=== PATIENT | male | born 1950 | race Caucasian/White ===

== ENCOUNTER 2016-12-31 12:35 | Day surgery (SDC) | payer BC ==
[2016-12-28 13:17] VITALS: BMI 27.8
[2016-12-31] MEDS ORDERED: Iothalamate Meglumine 60% 50 ML VIAL FS ONE (13:51)
[2016-12-31] MEDS ORDERED: Fentanyl 100 MCG/2 ML VIAL ONE (13:55)
[2016-12-31] MEDS ORDERED: Promethazine HCl 25 MG/ML VIAL ONE (13:56)
[2016-12-31] MEDS ORDERED: Indomethacin 50 MG SUPP ONE (14:18)
[2016-12-31] MEDS ORDERED: Propofol 200 MG/20 ML VIAL ONE (14:26)
[2016-12-31] MEDS ORDERED: Ondansetron HCl/PF 4 MG/2 ML Vial ONE (14:26)
[2016-12-31] MEDS ORDERED: Glycopyrrolate 0.2 MG/ML 5 ML SYRINGE ONE (14:26)
[2016-12-31] MEDS ORDERED: cefTRIAXone\\ROCEPHIN 1 GM, Syringe 0.4 ML in Sterile Water 9.6 ML SLOW IVP SCH (14:30)
--- OUTSIDE RECORDS SUMMARY | 2016-12-31 14:46 | XMS | Clinical Summary ---
:1950 Author Organization [facility] Address [address] [place] [address] Phone Care Team Providers Name Role Phone , Primary Care Provider Unavailable Allergies Active Allergy Reactions Severity Noted Date Comments Penicillins Rash Low 12/29/2015 Current Medications Prescription Sig. Disp. Refills Start Date End Date Status QUINAPRIL HCL (QUINAPRIL Take by mouth. Active ORAL) Active Problems Not on file Social History Tobacco Use Types Packs/Day Years Used Date Never Smoker Alcohol Use Drinks/Week oz/Week Comments No Sex Assigned at Date Recorded Not on file Last Filed Vital Signs Vital Sign Reading Time Taken Blood Pressure 112/74 12/30/2015 12:20 PM GENERATOR SWITCHBOARD OPERATOR Pulse 74 12/30/2015 12:20 PM GENERATOR SWITCHBOARD OPERATOR Temperature 36.8 C (98.2 F) 12/30/2015 11:55 AM GENERATOR SWITCHBOARD OPERATOR Respiratory Rate 18 12/30/2015 12:15 PM GENERATOR SWITCHBOARD OPERATOR Oxygen Saturation 98% 12/30/2015 12:20 PM GENERATOR SWITCHBOARD OPERATOR Inhaled Oxygen Concentration - - Weight 99.3 kg (219 lb) 12/30/2015 9:12 AM GENERATOR SWITCHBOARD OPERATOR Height 180.3 cm (5' 11") 12/30/2015 9:12 AM GENERATOR SWITCHBOARD OPERATOR Body Mass Index 30.54 12/30/2015 9:12 AM GENERATOR SWITCHBOARD OPERATOR Plan of Treatment Not on file Results Not on filefrom Last 3 Months
--- NOTE | 2016-12-31 19:18 | RAD ---
ERCP: Date: 12/31/16 HISTORY: Stent placement. FINDINGS/IMPRESSION: Spot fluoroscopic images of the right upper quadrant during an ERCP demonstrate opacification of the hepatic biliary ducts and their branches without significant filling defects. There is incomplete o pacification of the common bile duct. The final image demonstrates a stent in the common bile duct. POS: [facility]
--- NOTE | 2016-12-31 21:52 | OP ---
DATE OF OPERATION: 12/31/2016 PROCEDURE: ERCP with cytology brushing and biliary stent placement. PHYSICIAN: Kai Colin M.D. ANESTHESIA: Given by anesthesiology department. PREOPERATIVE DIAGNOSES: 1. History of jaundice associated with fevers, chills, and abnormal liver profile. 2. Status post laparoscopic cholecystectomy with subsequent ERCP for choledocholithiasis in 2016. POSTOPERATIVE DIAGNOSIS: 4 cm length stricture in the upper common bile duct with intrahepatic bili daniel dilatation. PROCEDURE IN DETAIL: Written consent was obtained prior to procedure. The side-viewing endoscope w as advanced down the stomach through pylorus into duodenum. The previous sphincterotomy was noted a t the ampulla and appeared normal. A multistage stage balloon was then used to cannulate the common bile duct without any difficulty. Injection of contrast initially showed a 5 mm caliber distal com mon bile duct with an abrupt and below the 2 surgical clips. A guidewire was then placed across and traversed upward. The balloon was able to traverse the stricture. Opacification with contrast hema wed the intrahepatic biliary system to be dilated. There appears to be a 4+ cm length stricture in the upper common bile duct that appears to abut the bifurcation. The balloon was then removed. A p athology brush was then placed over the guidewire for brushing. A total of 4 slides were fixated an d sent to pathology. Next, a apparatus catheter was then placed over the guidewire. A 10-Serbian 10 cm length biliary stent was then placed across the stricture with good bile drainage. There was pr ompt excretion of contrast from the intrahepatic biliary system. Fluoroscopic views were obtained. The endoscope was then removed. The patient tolerated procedure well. ASSESSMENT: 1. A 4 cm biliary stricture in the upper common bile duct appears to abut the bifurcation. 2. Status post biliary stent placement and cytology brushing. PLAN: 1. Await cytology report. 2. We will obtain CT and CA 19-9 level.
== END 2016-12-31 17:41 | disposition home or self-care (01) ==
LOC: SDC 12:35
PROVIDERS: ATTEND Internal Medicine Gastroenterology
PROC: 0F798DZ Dilation of Common Bile Duct with Intraluminal Device, Via Natural or Artificial Opening Endoscopic (ICD-10-PCS; principal; 2016-12-31)
DX: K83.1 Obstruction of bile duct (principal); I10 Essential (primary) hypertension; Z88.0 Allergy status to penicillin; Z79.899 Other long term (current) drug therapy; Z90.49 Acquired absence of other specified parts of digestive tract; Z98.890 Other specified postprocedural states
CPT/HCPCS: 36415; 74330; 82105; 82378; 86301; 88104; A4216; C2625; J0696; J2405; J2550; J2704; J3010; Q9961

== ENCOUNTER 2017-01-03 08:42 | Outpatient (CLI) | payer BC ==
--- NOTE | 2017-01-03 12:27 | CT ---
EXAM: ABDOMEN CT WITH CONTRAST PELVIC CT WITH CONTRAST: COMPARISON: 01/02/16. HISTORY: Dilatation of the common duct. The patient has a common duct stent. COMPARISON: 01/02/16. TECHNIQUE: An abdomen and pelvis CT are performed with IV and oral contrast. Coronal reformatted images are sub mitted for interpretation. FINDINGS: ABDOMEN CT: Chronic change of the lung bases. Heart is normal in size. No significant pericardial fluid. The d escending thoracic aorta and abdominal aorta have a normal caliber. No periaortic fat stranding. The spleen and adrenal glands have appropriate enhancement. There is symmetric enhancement of the ki dneys. Redemonstration of a right renal cyst, measuring 3.2 cm suggesting slight interval increase i n size. There is no evidence of obstructive uropathy. There is air in the biliary system. There is a stent in the common bile duct. The body and the tail of the pancreas have a normal appearance. Adjacent to the head of the pancreas, there is a hypodens e mass which has a heterogeneous enhancement and measures 7.8 x 4.9 x 5.2 cm. A cholangiocarcinoma i s favored, based upon location. There is evidence of tumor thrombus involving the right protal vein, main portal vein, and superior mesenteric vein. Questionable extension of thrombus into the inferio r vena cava. Gastric mucosa, duodenum, and multiple normal-caliber small bowel loops are noted. Ileocecal junctio n is normal. Fecal material in a nondistended, nondilated colon. Diverticulosis, without evidence o f diverticulitis. In the anterior left abdominal rectus muscle, there is an enhancing mass measuring 1.7 x 2.2 cm. Que stionable small necrotic component. A metastatic focus is favored. This finding was not present on the previous exam. PELVIC CT: No mass, lymphadenopathy, free air, or free fluid. No lytic or blastic lesions. Pars defects with spondylolisthesis at the lumbosacral junction are not ed. IMPRESSION: 1. Cholangiocarcinoma as detailed above. 2. Presumed metastatic periportal and gastrohepatic ligament lymph nodes, nonenlarged. Confirmation with PET imaging. 3. 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 Questionable extension of thrombus into the inferior vena cava. 4. Left anterior abdominal rectal mass, possibly representing a metastatic focus. POS: [facility]
[2017-01-03] MEDS ORDERED: Iopamidol 370 76% 100 ML VIAL ONE (15:23)
== END 2017-01-03 08:43 | disposition home or self-care (01) ==
LOC: CT 08:42
PROVIDERS: ATTEND Internal Medicine Gastroenterology
DX: K83.1 Obstruction of bile duct (principal); R17 Unspecified jaundice; C22.1 Intrahepatic bile duct carcinoma; I81 Portal vein thrombosis; K62.89 Other specified diseases of anus and rectum
CPT/HCPCS: 74177

== ENCOUNTER 2017-04-22 08:04 | Outpatient (CLI) | payer MEDICARE ==
--- NOTE | 2017-04-22 11:41 | CT ---
ABDOMEN CT WITH CONTRAST PELVIC CT WITH CONTRAST: COMPARISON: 01/03/17, 02/21/17. TECHNIQUE: Abdomen and pelvic CT performed with IV and oral contrast. Coronal reformatted images are submitted for interpretation. HISTORY: Cholangiocarcinoma. Currently undergoing chemotherapy. FINDINGS: ABDOMEN CT: Lung bases are clear. Heart size is normal. No pericardial effusion. The descending thoracic aorta and abdominal aorta are unchanged. Symmetric attenuation of the psoas muscles. Redemonstration of stents in the intra- and extrahepatic biliary system, unchanged in position. Ther e is continued and essentially stable dilatation of the intra- and extrahepatic biliary system. Stab le hypodensities throughout the hepatic parenchyma. Conglomeration of hypodensities in the right hep atic lobe measuring 2.1 x 2.4 cm. Hypodensity in the anterior segment of the right hepatic lobe, ephraim suring 2.8 x 1.5 cm. The conglomeration of hypodensities previously measured 1.5 x 2.2 cm. The hypo density in the anterior segment of the right hepatic lobe previously measured 2.0 x 1.3 cm. Redemons tration of a mass inferior to the caudate lobe of the liver. This mass measures 9.8 x 5.4 cm (previo usly measuring 8.8 x 4.9 cm. Mass extends into the portal venous system. There is perihepatic and perisplenic fluid. The spleen, adrenal glands, and pancreas are unchanged in appearance. Symmetric enhancement of the k idneys. Stable hypodensities in the right renal cortex. Bilaterally, no obstructive uropathy. No mesenteric mass, lymphadenopathy, or free air. Gastric mucosa is underdistended. Duodenum is unremarkable. The distal aspect of the intrabiliary s tents are noted in the third portion of the duodenum. Multiple normal-caliber small bowel loops. No rmal ileocecal junction. Retained contrast outlines the mucosa of the right hemicolon. No evidence of chronic obstruction. Note is made of splenic varices. Extensive diverticulosis in the left hemicolon, without evidence of diverticulitis. Redemonstration of a hyperdense mass along the anterior left rectus muscle/subcutaneous fat, measurin g 2.4 cm (previously measuring 1.7 x 2.4 cm (previously measuring 2.2 x [address]: There is complex fluid in the pelvis with attenuation coefficient of 11 Hounsfield units. The urinar y bladder is unremarkable. There is a right-sided inguinal hernia containing ascites. No pelvic mass , lymphadenopathy, or free air. No lytic or blastic lesions in the osseous structures. IMPRESSION: 1. Redemonstration of cholangiocarcinoma with multiple intrahepatic metastases. Stable dilatation o f the intra- and extrahepatic biliary system. 2. Stable positioning of a biliary stent. 3. 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 POS: [facility]
[2017-04-22] MEDS ORDERED: Iopamidol 370 76% 100 ML VIAL ONE (16:01)
== END 2017-04-22 08:05 | disposition home or self-care (01) ==
LOC: CT 08:04
PROVIDERS: ATTEND Internal Medicine Hematology & Oncology
DX: C23 Malignant neoplasm of gallbladder (principal); C24.8 Malignant neoplasm of overlapping sites of biliary tract; C78.89 Secondary malignant neoplasm of other digestive organs; I81 Portal vein thrombosis
CPT/HCPCS: 74177

== ENCOUNTER 2017-05-23 08:28 | Day surgery (SDC) | payer MEDICARE ==
[2017-05-23] MEDS ORDERED: Sodium Chloride 0.9% 30 ML ONE (08:52)
[2017-05-23] MEDS ORDERED: diphenhydrAMINE 25 MG CAP PO SCH (09:15)
[2017-05-23] MEDS ORDERED: Acetaminophen 500 MG TAB PO SCH (09:15)
[2017-05-23 15:23] VITALS: BP 104/57; TEMP 97.9
[2017-05-23 16:16] LABS: #Lymphocytes 0.6 thou/uL (1.20-3.40); #Neutrophils 3.1 thou/uL (1.40-6.50); %Eosinophils 0.2 % (0.0-10.0); %Lymphocytes 15.2 % (21.0-51.0); %Monocytes 0.3 % (0.0-10.0); %Neutrophils 84.3 % (42.0-75.0); Hemoglobin 9.3 g/dL (14.0-18.0); Mean Corpuscular HGB CONC 33.7 g/dL (32.0-36.0); Mean Corpuscular Hemoglobin 34.3 pg (27.0-31.0); Mean Platelet Volume 9.1 fL (7.4-10.4); Platelet Count 87 thou/uL (130-400); RBC Distribution Width 15.3 % (11.5-14.5); White Blood Cell (WBC) Count 3.6 thou/uL (4.8-10.8)
[2017-05-23 16:17] LABS: Anisocytosis SLIGHT = 6-15 cells (100X) (0-5/hpf); MDiff Complete? YES; Macrocytosis SLIGHT = 6-15 cells (100X) (0-5/hpf); PLT Morphology Comment Appears Decreased; Polychromasia SLIGHT = 2-3 cells (100X) (0-2/hpf)
== END 2017-05-23 15:24 | disposition home or self-care (01) ==
LOC: ONC/OP 08:28
PROVIDERS: ATTEND Internal Medicine Hematology & Oncology
PROC: 30233N1 Transfusion of Nonautologous Red Blood Cells into Peripheral Vein, Percutaneous Approach (ICD-10-PCS; principal; 2017-05-23)
DX: D64.9 Anemia, unspecified (principal); D69.6 Thrombocytopenia, unspecified; Z79.899 Other long term (current) drug therapy; Z88.0 Allergy status to penicillin
CPT/HCPCS: 36430; 85025; 86850; 86900; 86901; A4216; J1642; P9016

== ENCOUNTER 2017-05-28 10:21 | Inpatient (IN) | payer MEDICARE ==
[2017-05-28] MEDS ORDERED: KETAMINE 100 MG/ML (5ML VIAL) ONE (10:36)
[2017-05-28 10:51] LABS: Hemoglobin 9.3 g/dL (14.0-18.0); Mean Corpuscular HGB CONC 32.6 g/dL (32.0-36.0); Mean Corpuscular Hemoglobin 33.2 pg (27.0-31.0); Platelet Count 9 thou/uL (130-400); RBC Distribution Width 16.1 % (11.5-14.5); White Blood Cell (WBC) Count 0.4 thou/uL (4.8-10.8)
[2017-05-28] MEDS ORDERED: Cefepime 2 GM/10 ML SYR ONE (11:01)
[2017-05-28 11:04] LABS: ALT (SGPT) 20 U/L (8-55); AST (SGOT) 32 U/L (5-34); Albumin 2.1 g/dL (3.4-4.8); Alkaline Phosphatase 133 U/L (40-150); Anion Gap 27 mmol/L (10-20); BUN (Urea Nitrogen) 70 mg/dL (8.4-25.7); Bilirubin, Total 1.6 mg/dL (0.2-1.2); CK (CPK) 61 U/L (30-200); Calc. Creatinine Clearance 0 mL/min (70-130); Calcium 7.8 mg/dL (7.8-10.44); Carbon Dioxide 11 mmol/L (23-31); Chloride 107 mmol/L (98-107); Estimated GFR-MDRD 25; Globulin 3.2 g/dL (2.4-3.5); Glucose 68 mg/dL (80-115); Protein, Total 5.3 g/dL (5.8-8.1); Sodium 141 mmol/L (136-145)
[2017-05-28 11:09] LABS: CKMB 0.4 ng/mL (0-6.6)
[2017-05-28] MEDS ORDERED: Ondansetron PF 4 MG/2 ML Vial ONE (11:09)
[2017-05-28 11:16] LABS: MDiff Complete? YES; Ovalocytes SLIGHT = 2-5 cells (100X) (0-1/hpf); PLT Morphology Comment Appears Decreased; Polychromasia SLIGHT = 2-3 cells (100X) (0-2/hpf); Schistocytes SLIGHT = 2-5 cells (100X) (0-1/hpf)
--- NOTE | 2017-05-28 11:50 | RAD ---
PORTABLE CHEST 1 VIEW: DATE: 05/28/17. TIME: 11:22 a.m. HISTORY: Hypotension. FINDINGS: There is a right-sided Port-A-Cath with tip in the projection of the cavoatrial junction. The heart size is borderline. The aorta is tortuous. There is mild pulmonary vascular congestion. No lobar c onsolidation, pneumothoraces, or large effusions are seen. POS: [facility]
[2017-05-28] MEDS ORDERED: Hydrocortisone Sod Succ/PF 100 mg/2 ml Vial ONE (12:17)
[2017-05-28 13:04] LABS: Bilirubin Negative (Negative); Blood, Urine Moderate (Negative); Clarity CLOUDY (Clear); Glucose, Urine (Dipstick) Negative (Negative); Leukocyte Negative (Negative); Nitrite Negative (Negative); Protein, Urine (Dipstick) 30 mg/dL (Neg-Trace); Specific Gravity, Urine 1.015 (1.002-1.036); Urobilinogen 0.2 mg/dL (0.2-1.0)
[2017-05-28 13:06] LABS: Bacteria/HPF None Seen HPF (None Seen)
[2017-05-28] MEDS ORDERED: CCU Electrolyte Replacement 1 EACH IVPB ONE (13:06)
[2017-05-28] MEDS ORDERED: VANCOMYCIN IVPB PRN (13:06)
[2017-05-28 13:11] LABS: Yeast-AUWi Flag 130.1 (0-25.0)
[2017-05-28 13:12] LABS: Pathc Cast-AUWi Flag 11.48 (0-2.49)
[2017-05-28 13:20] LABS: Hyaline Casts/LPF 0-3 HYALINE CAST LPF (0-3 Hyaline); Other Casts/LPF None Seen LPF (0-3 Hyaline); Yeast-All Forms None Seen HPF (None Seen)
[2017-05-28 13:21] LABS: Renal Epithelial 0-3 HPF (0-3); Transitional Epithelial 0-3 HPF (0-3)
[2017-05-28] MEDS ORDERED: Potassium Phosphate 9 MMOL in Sodium Chloride 0.9% 100 ML IVPB PRN (13:32)
[2017-05-28] MEDS ORDERED: Magnesium Oxide 400 MG TAB PO PRN ×2 (13:32)
[2017-05-28] MEDS ORDERED: Potassium Chloride 20 MEQ TAB PO PRN (13:32)
[2017-05-28] MEDS ORDERED: Potassium Chloride 40 MEQ in Premix Bag 1 BAG IVPB PRN (13:32)
[2017-05-28] MEDS ORDERED: Potassium Chloride 40 MEQ in Sodium Chloride 0.9% 250 ML 250 ML IVPB PRN (13:32)
[2017-05-28] MEDS ORDERED: Magnesium 2 GM/NS 0.9% 100 ML 2 GM in Premix Bag 1 BAG IVPB PRN (13:32)
[2017-05-28] MEDS ORDERED: Potassium Phosphate 12 MMOL in Sodium Chloride 0.9% 250 ML 250 ML IV PRN (13:32)
[2017-05-28] MEDS ORDERED: Potassium Phosphate 15 MMOL in Sodium Chloride 0.9% 250 ML 250 ML IV PRN (13:32)
--- NOTE | 2017-05-28 13:34 | CON ---
DATE OF CONSULTATION: 05/28/2017 This is 45 minutes critical care time. CONSULTING PHYSICIAN: Dr. Johnathan Garcia REASON FOR CONSULTATION: Septic shock. HISTORY OF PRESENT ILLNESS: Mr. Cook is a pleasant 66-year-old male who came into the hospital to day with one day of feeling poorly. He has had a dry cough. He has had severely low blood pressure. He took chemotherapy last week for his cholangiocarcinoma. He tells me he has a history of biliary stent placement several months ago down at [facility]. PAST MEDICAL HISTORY: 1. Cholangiocarcinoma. 2. Hypertension. PAST SURGICAL HISTORY: Appendectomy and biliary stent placement. ALLERGIES: PENICILLIN. MEDICATIONS PRIOR TO ADMISSION: Hydrochlorothiazide and perindopril. He may have also recently rece ived steroids per his chemotherapy. SOCIAL HISTORY: He does not smoke, does not consume alcohol, does not use illicit drugs. REVIEW OF SYSTEMS: Twelve point review of systems otherwise negative. PHYSICAL EXAMINATION: VITAL SIGNS: Blood pressure 80/60, pulse 120, O2 sat 98%, temperature 97. GENERAL: The patient looks acutely ill. He is able to converse without much limitation. HEENT: Remarkable for alopecia. NECK: No adenopathy, no JVD. LUNGS: Clear to auscultation. CARDIAC: S1, S2, tachycardic, irregularly irregular. ABDOMEN: Soft, nontender to palpation. EXTREMITIES: No clubbing or cyanosis, he has 2+ edema from his knees downward. LABORATORY AND X-RAY FINDINGS: White blood count 0.4, hemoglobin 9.3, hematocrit 28.6, platelet 9. Neutrophil count was not reportable. Sodium 141, potassium 4, chloride 107, CO2 11, BUN 70, creatini ne 2.5, glucose 68. Lactate was 13.3, AST 32, ALT 20. BNP 1672. Troponin 0.09, albumin 2.1. His chest x-ray shows no acute infiltrates, but does show some chronic interstitial changes. ASSESSMENT: 1. Septic shock. 2. Neutropenic sepsis. 3. Cholangiocarcinoma. 4. Status post biliary stent placement. DISCUSSION: 1. Usually in this case I would be suspicious of his infection being of gastrointestinal source. Pn eumonia cannot be completely ruled out. I would treat him with broad spectrum IV antibiotics. It so unds like he has received a dose of cefepime and vancomycin while in the ER. I would probably put hi m on a quinolone and the vancomycin. 2. Empiric steroids. 3. Agree with platelet transfusion. 4. The patient has central IV access through a MediPort. 5. Cardiology consult for the irregular heart rate - EKG is suspicious for atrial fibrillation and candace berrios has been shocked twice by the emergency room doctor without resolution. I think this is more likel y some type of sinus tachycardia with irregularity. 6. IV fluids with bicarbonate to help with metabolic acidosis. 7. Danielson catheter insertion. The above encompassed 45 minutes critical care time.
[2017-05-28 13:46] VITALS: BMI 26.9
[2017-05-28 14:11] LABS: Troponin I 0.076 ng/mL (< 0.028)
[2017-05-28] MEDS: Sodium Bicarbonate 70 MEQ in Dextrose 5 %-0.45 % NaCl 1,000 ML IV SCH ×2 (14:44→21:12)
[2017-05-28] MEDS ORDERED: Digoxin 0.5 MG/2 ML AMP SLOW IVP SCH ×2 (14:45→16:00)
[2017-05-28 17:19] LABS: Troponin I 0.092 ng/mL (< 0.028)
[2017-05-28] MEDS: Hydrocortisone Sod Succ/PF 100 mg/2 ml Vial IVP SCH ×2 (17:27→22:24)
[2017-05-28] MEDS ORDERED: Acetaminophen 325 MG TAB PO PRN (18:06)
--- NOTE | 2017-05-28 18:09 | CON ---
DATE OF CONSULTATION: 05/28/2017 REASON FOR CONSULTATION: Septic shock with atrial fibrillation with a rapid rate and hypotension. Mr. Cook is a very pleasant 66-year-old gentleman. He was admitted with septic shock and hypotens ion. This gentleman has a history of intraabdominal malignancy. He had a biliary stent placed recently. He has a cholangiocarcinoma. He has severely low white count. PAST MEDICAL HISTORY: 1. Cholangiocarcinoma. 2. Hypertension. PAST SURGICAL HISTORY: Appendectomy and biliary stent placement. ALLERGIES: PENICILLIN. MEDICATIONS PRIOR TO ADMISSION: Hydrochlorothiazide and an NOA inhibitor and the chemotherapy. SOCIAL HISTORY: No smoking or alcohol. REVIEW OF SYSTEMS: Constitutional: Weakness and fatigue. Vision: No changes. Hearing: No change s. Pulmonary: Some shortness of breath. Gastrointestinal: No nausea, vomiting, diarrhea. Skin: No rashes. Neurologic: No unilateral weakness or numbness. Psychiatric: No unusual depression or anxiety. PHYSICAL EXAMINATION: GENERAL: This is a pleasant, chronically ill appearing, but delightful elderly gentleman. VITAL SIGNS: His blood pressure is in the 90s systolic range and now on pressors. The pulse is 120- 132 regular. HEENT: Eyes, sclerae nonicteric. Mouth, mucous membranes moist. NECK: Supple, no lymphadenopathy. LUNGS: Clear. CARDIAC: Irregular, irregular. No murmur, rub or gallop. ABDOMEN: Soft, nontender. EXTREMITIES: No clubbing or cyanosis noted. There is moderate edema. SKIN: Warm and dry. PERTINENT LABORATORY AND X-RAY FINDINGS: His white blood cell count total of 0.4, platelet count 100 0 to 9000. No reportable neutrophil, hemoglobin is 9.3. EKG atrial fibrillation with a right bundle branch block pattern. ASSESSMENT: 1. Hypotension, septic. 2. Severely low white count. 3. Very low platelet count. 4. Cholangiocarcinoma. 5. Atrial fibrillation with a rapid rate. PLAN: Give a dose of intravenous digoxin repeated 2 hours later, total of 0.5 mg. Continue pressors . Obviously cannot be anticoagulated with a platelet count of 9000.
--- NOTE | 2017-05-28 18:23 | CON ---
REASON FOR CONSULTATION: Cholangiocarcinoma. HISTORY OF PRESENT ILLNESS: Mr. Cook is a pleasant 66-year-old male who was diagnosed w ith metastatic cholangiocarcinoma in 02/2017. He had a single site of metastasis on his abdominal wa ll at time of diagnosis. He also had hyperbilirubinemia and had a biliary stent placed in February, t was replaced in 04/2017. He was initially treated with Gemzar and Abraxane, but had disease progre ssion. Few weeks ago, he began Abraxane, cisplatin and Gemzar chemotherapy and has completed 2 full cycles. His last dose was on 05/22/2017. Over the last few days, he has complained of weakness. He received IV fluids over the last 2 days in our clinic. When he presented today, he was very weak an d unable to ambulate independently. He needed assistance to get off the toilet. He is significantly worse than he was yesterday. He also had mild confusion and complained of aches and pains of his mu scles and joints. He had dry mucous membranes. Blood pressure in our clinic was 60/42. His tempera ture was 100.3. His heart rate was 54-109. EMS was called and patient was transported to the emerge ncy room for evaluation. Routine CBC showed a white count of 0.4. His hemoglobin was 9.[address] atelet count was 9,000. He did have an elevated lactic acid of 13.3 and an elevated creatinine of 2. 54. Baseline creatinine for this gentleman is 0.74. He was started on IV fluids and vasopressors an d admitted to the ICU for septic shock. Dr. Fine has been consulted. The patient is awake and al ert at this time. He complains of generalized achiness, weakness and malaise. Denies any chest pain or shortness of breath. No abdominal discomfort. PAST MEDICAL HISTORY: 1. Stage IV cholangiocarcinoma. 2. Hypertension. PAST SURGICAL HISTORY: 1. Biliary stent placement. 2. Cholecystectomy. 3. Appendectomy. ALLERGIES: PENICILLIN. HOME MEDICATIONS: 1. Hydrochlorothiazide 25 mg daily. 2. Zofran p.r.n. 3. Oxycodone 10 mg p.r.n. 4. Potassium chloride 20 mEq daily. 5. Perindopril erbumine 4 mg daily. FAMILY HISTORY: Both his mother and father had lung cancer with a history of smoking. SOCIAL HISTORY: , has 3 children, lives with his spouse, nonsmoker. No alcohol or illicit dr ug use. REVIEW OF SYSTEMS: Twelve point review of systems is negative except for noted in HPI. PHYSICAL EXAMINATION: VITAL SIGNS: Temperature is 99.7, pulse is 126, respiratory rate is 20, and BP is 96/60. GENERAL: This is an ill-appearing male in no acute distress. HEENT: Normocephalic, atraumatic. Pupils are equal and reactive to light. NECK: Supple. CARDIOVASCULAR: Tachycardia, but regular. LUNGS: Clear to auscultation. ABDOMEN: Soft, nontender, bowel sounds are positive. SKIN: He has jaundice. HEMATOLOGIC: There is no petechia or purpura. NEUROLOGICAL: Nonfocal. PSYCHIATRIC: Patient is alert and oriented and appropriate. PERTINENT LABORATORY DATA AND IMAGING DATA: Current WBCs are 400, hemoglobin 9.3, hematocrit 28.6, a nd platelet count is 9,000. Sodium is 141, potassium 4.0, chloride 107, CO2 is 11, BUN is 70, creati nine is 2.54. Lactic acid 13.3, calcium 7.8, bilirubin is 1.6, AST is 32, ALT is 20, alkaline phosph atase is 133, creatinine kinase is 61, CK-MB 0.4, troponin 0.076. BNP is 1672.2, serum total protein is 5.3, albumin 2.1, globulin 0.7. Urine was negative for bacteria. ASSESSMENT: 1. Cholangiocarcinoma on chemotherapy. 2. Neutropenic fever. 3. Septic shock. 4. Thrombocytopenia secondary to chemotherapy. DISCUSSION: Patient has been started on IV fluids with IV pressors. He is being transfused a unit o f platelets. He has been started on empiric antibiotics. He did receive Neulasta with his last kennedy tment that should begin to improve his white count in the next 2 days. We will monitor his CBC close ly and provide supportive care. I appreciate organizational consultant's assistance with this very nice gentleman. Thank you for the consult.
--- NOTE | 2017-05-28 20:27 | HP ---
DATE OF ADMISSION: 05/28/2017 ADMITTING PHYSICIAN: Johnathan Garcia M.D. HISTORY OF PRESENT ILLNESS: The patient is a 66-year-old male with known history of cholangiocarcino ma, currently undergoing chemotherapy. The patient was recently diagnosed cholangiocarcinoma about s ix months ago. He has been doing some chemotherapy in [place], most recently now under Dr. Saldana. Apparently, he was seen in [facility] today hypotensive, lethargic, and tachycardic. He was sent to [facility]. Upon arrival to the emergency room, he was found to be hypotensive and tachycardic , thought initially be in atrial fibrillation. He was given initial doses of IV antibiotics and actu ally had underwent electrocardioversion, which was unsuccessful. He was given additional liters of f luid and was observed. I was called and asked to admit him. Upon my arrival, Dr. Saldana was in the room and may be fully a wallace of the circumstances surrounding his trip to the emergency room. Interviewing the patient, he reports no cough, some nausea, poor appetite secondary probably to his c hemotherapy. It is noted that he does have a biliary stent. This has been followed off and on throu gh his treatment in [place] at [facility]. Family is at his bedside. The patient notes that he has poor appetite, does not feel like eating muc h. Once again, no cough, has had some fever, no diarrhea has been noted, no pain with urination at t his time as well. ALLERGIES: He is allergic to PENICILLIN. CURRENT MEDICATIONS: OxyContin. PAST MEDICAL HISTORY: Positive for kidney stones, cholangiocarcinoma, and hypertension. PAST SURGICAL HISTORY: Positive for cholecystectomy, appendectomy, and lithotripsy. SOCIAL AND PERSONAL HISTORY: He is . He does not smoke. He drinks alcohol socially. REVIEW OF SYSTEMS: Gastrointestinal: Positive as above. Genitourinary: Otherwise, negative. Card iovascular: Negative. Pulmonary: Otherwise, negative. PHYSICAL EXAMINATION: VITAL SIGNS: Blood pressure is 100/79, pulse 125, O2 sat 97%. GENERAL: This is an ill-appearing white male. He opens his eyes. He is communicative and does not appear to be in any acute distress, but does appear to be uncomfortable. HEENT: Alopecia secondary to chemotherapy. Sclerae and conjunctivae are otherwise clear. NECK: Full range of motion, no masses, no bruits auscultated. Thyroid shows no evidence of any thyr omegaly or thyroid masses. HEART: Reveals an irregular rhythm, tachycardia without murmur, gallops or rubs. LUNGS: Reveal bilateral breath sounds without wheezes, rhonchi or rales. ABDOMEN: Soft. There is no evidence of any rebound or guarding. The bowel sounds are present and a ctive. No hepatosplenomegaly can be detected. EXTREMITIES: No evidence of any clubbing. There is 1+ edema bilaterally. SKIN: No evidence of any lesions, unusual rashes present at this time. NEUROLOGIC: He is able to move all extremities well. He follows commands spontaneously. IMPRESSION: 1. Neutropenic sepsis. 2. Probable septic shock. 3. Cholangiocarcinoma. 4. Hypertension. 5. History of biliary stent. PLAN: 1. I have consulted Dr. Saldana as well as Dr. Fine as well as Dr. Colin. 2. We will keep him on IV antibiotics. Dr. Fine has already placed him on Levaquin and vancomyci n. He received 1 dose of cefepime and vancomycin. 3. He will need platelet transfusion. This has been accomplished. 4. We will also obtain Cardiology consult. 5. Aggressive fluid resuscitation. 6. I have discussed with the patient his DNR status, he informs me that he has a living will and he request to be at a DNR status as it is already stated his living will and advanced directive.
[2017-05-28] MEDS: Norepinephrine 8 MG/0.9% NS 250 ML IVPB PRN (20:50)
[2017-05-28] MEDS ORDERED: Temazepam 15 MG CAP PO PRN (20:52)
[2017-05-28 21:15] LABS: Lactic Acid 10.6 mmol/L (0.5-2.2)
[2017-05-29 06:04] LABS: Hemoglobin 9.4 g/dL (14.0-18.0); Mean Corpuscular HGB CONC 32.4 g/dL (32.0-36.0); Mean Corpuscular Hemoglobin 32.6 pg (27.0-31.0); Mean Platelet Volume 10.7 fL (7.4-10.4); Platelet Count 16 thou/uL (130-400); RBC Distribution Width 16.4 % (11.5-14.5); Red Blood Cell (RBC) Count 2.89 mill/uL (4.70-6.10); White Blood Cell (WBC) Count 0.8 thou/uL (4.8-10.8)
[2017-05-29 06:12] LABS: Lymphocytes 56 % (21-51); MDiff Complete? YES; Monocytes 32 % (0-10); Neutrophil 12 % (42-75); PLT Morphology Comment Appears Decreased
[2017-05-29 06:18] LABS: ALT (SGPT) 27 U/L (8-55); AST (SGOT) 54 U/L (5-34); Albumin 2.2 g/dL (3.4-4.8); Alkaline Phosphatase 117 U/L (40-150); Anion Gap 27 mmol/L (10-20); BUN (Urea Nitrogen) 76 mg/dL (8.4-25.7); Calc. Creatinine Clearance 37 mL/min (70-130); Calcium 7.5 mg/dL (7.8-10.44); Carbon Dioxide 11 mmol/L (23-31); Chloride 107 mmol/L (98-107); Estimated GFR-MDRD 28; Globulin 3.2 g/dL (2.4-3.5); Glucose 88 mg/dL (80-115); Potassium 3.9 mmol/L (3.5-5.1); Protein, Total 5.4 g/dL (5.8-8.1); Sodium 141 mmol/L (136-145)
[2017-05-29] MEDS: Hydrocortisone Sod Succ/PF 100 mg/2 ml Vial IVP SCH ×4 (06:35→23:35)
[2017-05-29] MEDS: Sodium Bicarbonate 70 MEQ in Dextrose 5 %-0.45 % NaCl 1,000 ML IV SCH ×3 (06:35→17:28)
--- NOTE | 2017-05-29 07:47 | RAD ---
SINGLE VIEW CHEST: Date: 05/29/17 COMPARISON: 05/28/17. HISTORY: Ventilated patient with respiratory failure. FINDINGS: Single view of chest shows an enlarged but stable cardiomediastinal silhouette. MediPort is unchanged in position. Increased interstitial markings are present. There is stable elevation of the right hem idiaphragm. IMPRESSION: Stable exam. POS: [facility]
[2017-05-29] MEDS: Norepinephrine 8 MG/0.9% NS 250 ML IVPB PRN ×4 (08:01→23:36)
[2017-05-29] MEDS: Pantoprazole 40 MG VIAL IVP SCH (08:02)
--- NOTE | 2017-05-29 08:04 | PRG ---
DATE OF SERVICE: 05/29/2017 SUBJECTIVE: Mr. Cook is in the ICU, he is awake and alert. He is complaining of pain. During night it was noted that his blood cultures became positive, one positive for MRSA. He still ran a fever last night. He is still requiring pressor agents. He is complaining of pain. PHYSICAL EXAMINATION: GENERAL: He is alert. He appears to be in no significant distress other than pain. LUNGS: Reveal bilateral breath sounds. HEART: Reveals a tachycardia without murmurs. LABORATORY: White blood count 0.8, hemoglobin 9.4, hematocrit 29.1, platelets are 16,000. Chemistry : Sodium 141, potassium 3.9, chloride 107, CO2 11, BUN 76, creatinine 2.35. Lactic acid is 10.6, bi lirubin is 2.0. Blood culture is positive for methicillin-resistant Staph aureus out of the right ar m with blood cultures positive apparently out of the Port-A-Cath. IMPRESSION: A 66-year-old male with cholangiocarcinoma is having sepsis appears to be methicillin-re sistant Staph aureus, concern is that his biliary stent may also be infected. PLAN: He is currently on vancomycin. We will continue that. He is complaining of pain. We will ad d morphine sulfate 2 mg IV q.2h. If this affects his blood pressure we will have to withhold it. We will go ahead and start some clear liquids at this time. Further treatment recommendations from Dr. Saldana, Dr. Fine and Dr. Molina.
[2017-05-29] MEDS: Morphine 4 MG/ML VIAL SLOW IVP PRN ×3 (08:26→13:32)
--- NOTE | 2017-05-29 08:39 | CON ---
DATE OF CONSULTATION: 05/28/2017 REASON FOR CONSULTATION: Sepsis, possible GI origin of infection, biliary stent placement. CONSULTING PHYSICIAN: Dr. Johnathan Garcia. HISTORY OF PRESENT ILLNESS: The patient is a 66-year-old male with past medical history of hypertension and metastatic cholangiocarcinoma presenting with complaints of increased lethargy, weakness, and decreased appetite. Earlier this year, the patient was diagnosed with metastatic cholangiocarcinoma in 02/2017 with a single site of metastasis at that time, he was also noted to have hyperbilirubinemia and subsequently underwent a biliary stent placement in 02/2017 while in [place] at [facility]. It was ultimately replaced in 04/2017. Since that time, he has undergone multiple chemotherapy regimens including Abraxane, cisplatin, and Gemzar more recently and completed 2 cycles of this particular regimen with the last dose being on 05/22/2017. Since that time, he had increased lethargy, weakness, decreased appetite, and mild nausea without any vomiting which is what prompted him to come into the clinic and subsequently in the hospital today. When evaluated in the oncology clinic earlier today, his blood pressure was profoundly low with a documentation of his BP being at 60/42 with a temperature of 100.3 concerning for a possible sepsis. Upon admission to the hospital, he was noted to have a significantly decreased white blood cell count, decreased H and H as well as platelet count, but an elevated lactic acid. He was subsequently transferred to the ICU for higher level of care. He was started on IV fluids and vasopressors given his significant hypotension. At this time, the patient is alert and oriented and states that he is feeling better when compared to previous. Currently, he denies any nausea, vomiting, fevers, chills, odynophagia, dysphagia, abdominal pain, GI bleeding, or constipation. He said that for the last 2-3 days, he has been having approximately 1-2 semi-solid bowel movements per day. No difficulty with defecation. REVIEW OF SYSTEMS: A 10-category review of systems was obtained with all responses negative except for those as listed in the HPI. PAST MEDICAL HISTORY: As per HPI. PAST SURGICAL HISTORY: Cholecystectomy, appendectomy, and biliary stent placement in 02/2017 and 04/2017. FAMILY HISTORY: Lung cancer (mother and father), denies any GI malignancy. SOCIAL HISTORY: Denies any alcohol, tobacco, or illicit drug use. OUTPATIENT MEDICATIONS: Reviewed. ALLERGIES: PENICILLIN. PHYSICAL EXAMINATION: VITAL SIGNS: Temperature 100, heart rate 115, blood pressure 93/58 on pressor support, respiratory rate 25, satting 97% on room air. GENERAL: The patient is lying in bed in no acute distress. He is alert and oriented x4. NECK: Supple. No JVD noted. CARDIOVASCULAR: Regular rate and rhythm with no discernible murmurs, gallops, or rubs. RESPIRATORY: Clear to auscultation bilaterally with no discernible wheezes or rales. ABDOMEN: Normoactive bowel sounds, soft, nontender, nondistended. EXTREMITIES: No cyanosis, clubbing or edema. LABORATORY DATA: CBC with a white blood cell count of 0.4, hemoglobin 9.3, hematocrit 28.6, platelets 9000. Chemistry with a sodium of 141, potassium 4, chloride 107, CO2 of 11, BUN 70, creatinine 2.54, glucose 68, AST 32, ALT 20, alkaline phosphatase 133, total bilirubin 1.6, albumin 2.1. BNP 1672. IMAGING DATA: Chest x-ray obtained on 05/28/2017 showed the presence of a right -sided Port-A-Cath with tip in the projection of the cavoatrial junction. The heart size was borderline. There was also noted to be mild pulmonary vascular congestion, but no lobar consolidation, pneumothoraces, or large effusions were seen. ASSESSMENT AND PLAN: The patient is a 66-year-old male with past medical history of hypertension and metastatic cholangiocarcinoma, presenting with significant hypotension concerning for sepsis. Hypotension/sepsis: The patient is presenting with recent round of chemotherapy with completion on 05/22/2017 who shortly thereafter had increased lethargy, weakness, decreased appetite and mild nausea as well as mild loose stools, who presented to the oncology clinic today with significant hypotension, tachycardia, and findings consistent with sepsis. At this particular point in time, the origin of his sepsis is unknown with the chest x-ray being normal in nature, normal LFTs, and minimal diarrhea on questioning patient and per nursing staff. He does have the replacement of a biliary stent that was placed in [place] in 04/2017, but his LFT pattern is not consistent with obstruction and unlikely to be contributing to an infectious process. With a recent change in his stools from more solid to more semi-solid consistency and with a significantly decreased white blood cell count, infectious diarrhea is possible, but less likely given the frequency of his diarrhea and the recent administration of chemotherapy which could contribute to this current clinical finding. Urinalysis thus far was negative for an infectious etiology with blood cultures also pending at this time. RECOMMENDATIONS: 1. We will order stool culture and Clostridium difficile for evaluation of possible infectious GI origin of his sepsis. 2. We would continue to monitor her blood pressure and continue close support within the ICU with pressor support. 3. Agree with broad-spectrum antibiotic therapy given the profound neutropenia and unknown origin of a possible infectious process at this time. 4. ERCP with stent replacement is not indicated at this time given the fact that his LFTs are not indicative of an obstructive process rather they have been down trending since the administration of chemotherapy. 5. If the patient does not continue to improve, could consider a CT of the abdomen and pelvis to look for obvious pathology that may contribute to his current clinical picture, however, with his elevated creatinine, a CT scan with contrast is ill advised. We will continue to follow. Please call with any questions. DICKSON
[2017-05-29] MEDS: GRANIX 300 MCG/0.5 ML VIAL SC SCH (08:49)
--- NOTE | 2017-05-29 09:01 | PRG ---
DATE OF SERVICE: 05/29/2017 Thirty minutes critical care time. The patient remains in the CCU. He is requiring Levophed drip at 26 mcg per minute. PHYSICAL EXAMINATION: VITAL SIGNS: With that Levophed his blood pressure is 84/55, pulse 116, respiratory rate 26, O2 sat 100%, temperature is 99.1, T-max has been 101.1; 24 hour intake 2691, output 915. HEENT: Unremarkable. NECK: No JVD. LUNGS: Fairly clear. CARDIAC: S1, S2, slightly tachycardic. ABDOMEN: Soft, nontender. EXTREMITIES: No edema. He has alopecia throughout. LABORATORY DATA: Sodium 141, potassium 3.9, chloride 107, CO2 11, BUN 76, creatinine 2.3, glucose 88 , AST 54, ALT 27. White blood cell count 0.8, hemoglobin 9.4, hematocrit 29.1, platelet count 16. H e is growing out Staphylococcus aureus from his blood. ASSESSMENT: 1. Bacteremia. 2. Neutropenic sepsis. 3. Cholangiocarcinoma. 4. Prerenal azotemia. PLAN: 1. Continue IV antibiotics. 2. Vasopressor therapy. 3. IV fluids with bicarbonate. 4. He is getting platelets today. 5. He is also receiving Neupogen. 6. He is receiving digoxin intermittently. His prognosis is poor. The patient is aware.
[2017-05-29] MEDS ORDERED: Vancomycin HCl 1 GM in Premix Bag 1 BAG IVPB SCH (11:00)
[2017-05-29 16:29] LABS: Hemoglobin 9.1 g/dL (14.0-18.0); MDiff Complete? YES; Mean Corpuscular HGB CONC 32.9 g/dL (32.0-36.0); Mean Corpuscular Hemoglobin 33.3 pg (27.0-31.0); Mean Platelet Volume 9.3 fL (7.4-10.4); Platelet Count 52 thou/uL (130-400); RBC Distribution Width 16.2 % (11.5-14.5); Red Blood Cell (RBC) Count 2.74 mill/uL (4.70-6.10); White Blood Cell (WBC) Count 1.4 thou/uL (4.8-10.8)
[2017-05-29 16:30] LABS: Anisocytosis SLIGHT = 6-15 cells (100X) (0-5/hpf); Band 18 % (5-11); Hypochromia SLIGHT = 6-15 cells (100X) (0-5/hpf); Lymphocytes 48 % (21-51); Monocytes 4 % (0-10); Neutrophil 30 % (42-75); PLT Morphology Comment Appears Decreased
[2017-05-29] MEDS ORDERED: Vasopressin 40 UNIT, Admixture Fee 1 EACH in Sodium Chloride 0.9% 100 ML IV SCH (17:00)
--- NOTE | 2017-05-29 18:13 | PRG ---
DATE OF SERVICE: 05/29/2017 REASON FOR CONSULTATION: Possible GI origin of infection, cholangiocarcinoma/biliary stent. SUBJECTIVE: The patient states that he is feeling somewhat better today when compared to yesterday i n terms of his general overall feeling. He continues to have subjective fevers and chills, but other longoria denies any nausea, vomiting, fever, abdominal pain, odynophagia, dysphagia, constipation or diar galileo. He has not had any bowel movement within the last 12-18 hours either. PHYSICAL EXAMINATION: VITAL SIGNS: Temperature 99.1, heart rate 99, blood pressure 88/54 on pressor support, respiratory r ate 23, satting 100% on 2 liters nasal cannula. GENERAL: The patient is lying in bed in no acute distress. Alert and oriented x4, cachectic in appe arance. CARDIOVASCULAR: Tachycardic rate with no discernible murmurs, gallops or rubs. Regular rhythm. LUNGS: Clear to auscultation bilaterally with no discernible wheezes or rales. ABDOMEN: Normoactive bowel sounds, soft, nontender, nondistended. EXTREMITIES: No cyanosis, clubbing or edema. LABORATORY DATA: CBC with a white blood cell count of 0.8, hemoglobin 9.4, hematocrit 29.1, platelet s 16. Chemistry with a sodium of 141, potassium 3.9, chloride 107, CO2 of 11, BUN 76, creatinine 2.3 5, glucose 88, AST 54, ALT 27, alkaline phosphatase 117, total bilirubin 2.0, albumin 2.2. Microbiol ogy was positive blood cultures for MRSA. IMAGING DATA: Chest x-ray obtained on 05/29/2017 showing enlarged but stable cardiomediastinal silho uette, MediPort is unchanged in position, increased interstitial markings are present but considered a stable examination when compared to previous. ASSESSMENT AND PLAN: The patient is a 66-year-old male with past medical history of hypertension, me tastatic cholangiocarcinoma presenting with significant hypertension consistent with sepsis with bloo d cultures positive for methicillin-resistant Staphylococcus aureus. Hypotension/sepsis. The patient presented after his most recent bout of chemotherapy with completion on 05/22/2017 with the occurrence of the lethargy, weakness, decreased appetite and mild nausea as w ell as minimally loose stools after that particular regimen. However, yesterday, he presented to the Oncology Clinic with significant hypotension with strong concern for sepsis. Infectious workup had been negative thus far for possible pneumonia or urinary tract infection; however, blood cultures are positive for MRSA. Given his normal LFT pattern in the presence of MRSA in the blood, the likelihoo d of a GI infectious origin is highly unlikely with MRSA not typically originating from the GI tract. He has not had any bowel movements since my evaluation yesterday, further making an infectious etio logy from a GI origin unlikely. RECOMMENDATIONS: 1. Continue to monitor blood pressure and continue close support within the ICU with pressor support . 2. Agree with broad spectrum antibiotic therapy for now given the profound neutropenia, but would ta ilor antibiotics towards MRSA once final susceptibilities are known. 3. ERCP with stent replacement is not indicated at this time given no evidence of obstruction and hi ghly and unlikelihood of this being the originating source of the MRSA. If at any point in time, the patient does need replacement of a stent, we will transfer the patient to [facility] who place d the stent for further management given his metastatic cholangiocarcinoma. We will continue to follow. Please call with any additional questions.
[2017-05-30] MEDS: Morphine 4 MG/ML VIAL SLOW IVP PRN ×4 (03:42→10:30)
[2017-05-30] MEDS: Hydrocortisone Sod Succ/PF 100 mg/2 ml Vial IVP SCH ×4 (05:46→23:46)
[2017-05-30] MEDS: Sodium Bicarbonate 70 MEQ in Dextrose 5 %-0.45 % NaCl 1,000 ML IV SCH ×4 (05:46→23:49)
[2017-05-30] MEDS: Norepinephrine 8 MG/0.9% NS 250 ML IVPB PRN ×4 (07:22→23:46)
--- NOTE | 2017-05-30 07:48 | PRG ---
DATE OF SERVICE: 05/30/2017 Thirty-five minutes critical care time. The patient remains on vasopressin and norepinephrine for blood pressure support. He still feels latosha y poorly. PHYSICAL EXAMINATION: VITAL SIGNS: His temperature is 98.8, pulse 96, blood pressure 91/45, currently on 35 mcg from Levop hed and 0.04 units per minute of vasopressin. 24 hour intake 7052, output 1145. HEENT: Remarkable for alopecia. NECK: No JVD. LUNGS: Clear anteriorly without wheezing. CARDIOVASCULAR: S1, S2 tachycardic. ABDOMEN: Soft, distended, nontender to deep palpation. EXTREMITIES: Generalized edema throughout. LABORATORY DATA: White blood count 1.4, hemoglobin 9.1, hematocrit 27.7, platelet count 52. Sodium 141, potassium 3.9, chloride 107, CO2 11, BUN 76, creatinine 2.3, glucose 88, total bilirubin is 2.0, AST 54, ALT 27, albumin 2.2. Culture is growing out MRSA. ASSESSMENT: 1. Methicillin-resistant Staphylococcus aureus septicemia - the MediPort should also be considered a potential site of infection given this. The risk factor for this would be his neutropenic sepsis fr om recent chemotherapy for cholangiocarcinoma. 2. Cholangiocarcinoma. 3. Septic shock. 4. Hypoalbuminemia. PLAN: The patient's prognosis continues to be quite poor. He is to the point where I think he wants to give up on this. We have seen some improvement in his white blood cell count and hopefully with continued treatment with antibiotics and fluids he will continue to improve. I would like to add alb umin to his hydration regimen as I think he continues to be dry. I will continue to follow closely.
[2017-05-30 07:54] LABS: ALT (SGPT) 64 U/L (8-55); AST (SGOT) 198 U/L (5-34); Albumin 2.2 g/dL (3.4-4.8); Alkaline Phosphatase 126 U/L (40-150); BUN (Urea Nitrogen) 80 mg/dL (8.4-25.7); Bilirubin, Total 2.7 mg/dL (0.2-1.2); Calc. Creatinine Clearance 37 mL/min (70-130); Calcium 7.9 mg/dL (7.8-10.44); Chloride 106 mmol/L (98-107); Estimated GFR-MDRD 27; Globulin 3.4 g/dL (2.4-3.5); Glucose 70 mg/dL (80-115); Potassium 4.3 mmol/L (3.5-5.1); Protein, Total 5.6 g/dL (5.8-8.1); Sodium 144 mmol/L (136-145)
[2017-05-30 07:56] LABS: Carbon Dioxide Less than 8 mmol/L (23-31)
--- NOTE | 2017-05-30 07:58 | PRG ---
DATE OF SERVICE: 05/30/2017 Mr. Cook is awake and alert. He is requiring a second agent for hypotension. He is still in some pain. LABORATORY: White blood count is 1.4, hemoglobin 9.1, hematocrit 27.7. Blood cultures are positive for methicillin-resistant staph. Chemistry: Sodium 141, potassium 3.9, chloride 107, CO2 is 8. IMPRESSION: Sepsis, probable infected stent. PLAN: The patient remains in critical condition. He is still maintained on Levaquin, as well as van comycin. He remains on 2 agents for hypotension. It is apparent his prognosis has taken a little bi t of a downturn. The patient has been informed of this as well as his . We will continue curren t management. Will discuss further management issues with the patient's family as they become availa ble.
[2017-05-30 08:04] LABS: Hemoglobin 9.6 g/dL (14.0-18.0); Mean Corpuscular HGB CONC 31.3 g/dL (32.0-36.0); Mean Corpuscular Hemoglobin 33.7 pg (27.0-31.0); Mean Platelet Volume 11.4 fL (7.4-10.4); Platelet Count 31 thou/uL (130-400); RBC Distribution Width 16.7 % (11.5-14.5); Red Blood Cell (RBC) Count 2.86 mill/uL (4.70-6.10); White Blood Cell (WBC) Count 4.1 thou/uL (4.8-10.8)
[2017-05-30 08:35] LABS: Vancomycin, Trough 14.8 ug/mL
[2017-05-30 09:46] LABS: Band 15 % (5-11); Burr Cells MODERATE= 6-15 cells (100X) (0-1/hpf); Lymphocytes 28 % (21-51); MDiff Complete? YES; Macrocytosis MODERATE=16-30 cells (100X) (0-5/hpf); Metamyelocyte 1 % (0-0); Monocytes 38 % (0-10); Myelocyte 1 % (0-0); Neutrophil 16 % (42-75); Nucleated RBC 4 % (0); PLT Morphology Comment Appears Decreased; Polychromasia MODERATE = 3-4 cells (100X) (0-2/hpf); Reactive Lymphocytes 1 % (0-10)
[2017-05-30] MEDS: Pantoprazole 40 MG VIAL IVP SCH (09:51)
[2017-05-30] MEDS: GRANIX 300 MCG/0.5 ML VIAL SC SCH (09:53)
[2017-05-30] MEDS ORDERED: Morphine 4 MG/ML VIAL SLOW IVP PRN (10:09)
[2017-05-30] MEDS ORDERED: Fentanyl 100 MCG/2 ML VIAL SLOW IVP PRN (10:15)
[2017-05-30] MEDS ORDERED: Vancomycin HCl 1.25 GM in Sodium Chloride 0.9% 250 ML 250 ML IVPB SCH (11:00)
[2017-05-30] MEDS: Albumin 25% 25 GM/100 ML BOT IVPB SCH ×3 (11:25→23:46)
[2017-05-30] MEDS: Fentanyl 100 MCG/2 ML VIAL SLOW IVP PRN ×3 (15:51→22:33)
--- NOTE | 2017-05-30 19:14 | PRG ---
DATE OF SERVICE: 05/30/2017 REASON FOR CONSULTATION: Cholangiocarcinoma/biliary stent. SUBJECTIVE: Today, the patient states that he is feeling worse during the course of this hospitalization, stating that he is tender to movements and even the sheets lying on top of him. He also complains of increased swelling in his legs and his arms and he has not had a bowel movement within the last 24-36 hours. At this point, he denies any nausea, vomiting, abdominal pain, odynophagia, dysphagia, constipation or diarrhea, but on questioning the patient , he is visibly shaking during the course of this interview. PHYSICAL EXAMINATION: VITAL SIGNS: Temperature 98.4, heart rate 108, blood pressure 104/54, respiratory rate 19, satting 100% on 2 liters nasal cannula. GENERAL: Patient is lying in bed in no acute distress; however, visibly tremulous with shaking chills, alert and oriented x4, although thought processes are somewhat slowed. Cachectic in appearance. Alopecia apparent. CARDIOVASCULAR: Tachycardic rate with regular rhythm and no discernible murmurs , gallops or rubs. LUNGS: Clear to auscultation bilaterally with no discernible wheezes or rales. ABDOMEN: Normoactive bowel sounds, soft, nontender, nondistended. EXTREMITIES: A 1+/2+ bilateral extremity edema also noted in the bilateral upper extremities. LABORATORY DATA: CBC with a white blood cell count of 4.1, hemoglobin 9.6, hematocrit 30.7, platelets 31. Chemistry with a sodium 144, potassium 4.3, chloride 106, CO2 is 8, BUN 80, creatinine 2.38, glucose 70, AST 198, ALT 64, alkaline phosphatase 126, total bilirubin 2.7, albumin 2.2. IMAGING DATA: No current GI imaging is available for review. ASSESSMENT AND PLAN: The patient is a 66-year-old male with past medical history of hypertension and metastatic cholangiocarcinoma presenting with significant hypotension consistent with sepsis from methicillin-resistant Staphylococcus aureus bacteremia, as well as acute kidney injury. Cholangiocarcinoma: The patient presenting with recent cycle of chemotherapy with worsening in his clinical status afterwards now with methicillin-resistant Staphylococcus aureus bacteremia. Currently, he is on 2 separate pressors to maintain his blood pressure and adequate perfusion of vital organs. However, he does have evidence of acute kidney injury with an elevated BUN and creatinine. His CO2 has also remained very low indicating metabolic acidosis, most likely associated with severe sepsis. Upon inspection of his liver function test, he has since had an elevation in AST, mild elevation in ALT and his total bilirubin continues to rise. However, it is unclear if this is due to a liver origin (given that AST is not specific to the liver), but may more be due more from sequelae of his hypotension associated with severe sepsis either creating acute liver injury or even intravascular hemolysis. During the course of this hospitalization, there was some concern that the biliary stent within the common bile duct is infected and could be potentially generating this current clinical picture; however, MRSA is not a typical bacteria seen within the GI tract and the biliary stent is not within a sterile environment to begin with, making overt infection of the stent itself highly unlikely. With the significant neutropenia and severe illness associated with last round of chemotherapy, further rounds of chemotherapy may not be beneficial to the patient with consideration for hospice a reasonable approach at this time. I spoke with the family at length about this prospect this afternoon and they are amenable to meeting with palliative care team and possibly releasing the patient to home under hospice care. RECOMMENDATIONS: 1. Continue to monitor blood pressure and continue close support within the ICU. 2. Agree with broad spectrum antibiotic therapy for methicillin-resistant Staphylococcus aureus bacteremia. 3. Further instrumentation or imaging would not necessarily oil changer at this point and in light of pursuing possible palliative care, I would state that is probably ill advised. 4. Agree with consultation of the palliative care team for possible placement on hospice. We will continue to follow. Please call with any additional questions. DICKSON
[2017-05-30] MEDS ORDERED: Ondansetron ODT 8 MG TAB SL PRN (22:01)
[2017-05-30] MEDS ORDERED: Promethazine HCl 25 MG/ML VIAL IM/IV PRN (22:01)
[2017-05-30 23:31] VITALS: TEMP 98.9
[2017-05-31] MEDS: Fentanyl 100 MCG/2 ML VIAL SLOW IVP PRN ×2 (00:34→03:14)
[2017-05-31] MEDS ORDERED: Lorazepam 2 MG/ML VIAL SLOW IVP PRN ×2 (01:39→03:10)
--- NOTE | 2017-06-04 07:57 | DIS ---
SUMMARY DATE OF ADMISSION: 05/28/2017 DATE OF : 05/31/2017 DATE OF DISCHARGE: 05/31/2017 PRINCIPAL DIAGNOSES: 1. Sepsis. 2. Metastatic cholangiocarcinoma. PRINCIPAL PROCEDURES: 1. IV pressor support. 2. IV antibiotics. HOSPITAL COURSE: Mr. Cook is a 66-year-old male with metastatic cholangiocarcinoma, who received chemotherapy with cisplatin, gemcitabine, and Abraxane and presented to my outpatient infusion area w ith hypotension as well as a low-grade fever of 100.4 and neutropenia. He was admitted through the e mergency room and was found to be in atrial fibrillation. Cardioversion was attempted, but was unsuc cessful, and he was placed on digoxin with stabilization of his blood pressure only with pressor supp ort. He did grow MRSA out of his bloodstream. He was treated appropriately with IV antibiotics, and over 48 hours continued to require pressor support. His white blood cell count was starting to impr ove and his blood counts were stabilizing; however, the patient was in a lot of pain and was emotiona lly very ready to not suffer any further. He voiced this to his and family as well as his physi kristin's. Early in the morning, on the day of his at about 3:00 a.m., he woke up anxious saying that he wanted to withdraw support and all pressors. His family was called to the bedside, and while they were there, care was withdrawn. He did within just a couple of hours. All of the patie nt's and family's including the 's and daughter's questions were answered and the patient had alejandra adan been made a DO NOT RESUSCITATE and therefore he .
== END 2017-05-31 06:25 | disposition expired | DRG 871 ==
LOC: ERS 10:21 → CCU 12:21
PROVIDERS: ADMIT Family Medicine; ATTEND Family Medicine
PROC: 6A551Z2 Pheresis of Platelets, Multiple (ICD-10-PCS; principal; 2017-05-28)
PROC: 5A2204Z Restoration of Cardiac Rhythm, Single (ICD-10-PCS; 2017-05-28)
PROC: 5A2204Z Restoration of Cardiac Rhythm, Single (ICD-10-PCS; 2017-05-28)
DX: A41.02 Sepsis due to Methicillin resistant Staphylococcus aureus (principal); R65.21 Severe sepsis with septic shock; N17.9 Acute kidney failure, unspecified; E87.2 Acidosis; D69.59 Other secondary thrombocytopenia; C79.9 Secondary malignant neoplasm of unspecified site; C22.1 Intrahepatic bile duct carcinoma; D70.9 Neutropenia, unspecified; I48.91 Unspecified atrial fibrillation; I10 Essential (primary) hypertension; T45.1X5A Adverse effect of antineoplastic and immunosuppressive drugs, initial encounter; Z66 Do not resuscitate; M54.9 Dorsalgia, unspecified; R50.81 Fever presenting with conditions classified elsewhere
CPT/HCPCS: 36415; 36416; 36430; 51702; 71045; 80053; 80202; 81003; 81015; 82248; 82550; 82553; 83605; 83615; 83880; 84100; 84484; 84550; 85007; 85025; 85027; 86850; 86900; 86901; 87040; 87077; 87149; 87186; 93005; 94760; 96365; 96366; 96375; C9113; J0692; J1160; J1442; J1720; J1956; J2060; J2270; J2405; J3010; J3370; J7042; J7050; P9035; P9047